=== PATIENT | female | born 1940 | race African-American/Black ===

== ENCOUNTER 2019-01-22 18:16 | Emergency (ER) | payer MEDICARE, MEDICAID ==
[~2019-01-22] VITALS: Ht 167.6 cm; Wt 90.0 kg
[~2019-01-22 18:16] MED LIST: CLARINEX; LIPITOR; METFORMIN; NASONEX; TRIAMETERENE/HCTZ; VERAPAMIL
[2019-01-22] MEDS ORDERED: FUROSEMIDE 40MG/4ML VIAL IV ONE (20:15)
[2019-01-22 20:33] LABS: BASOPHILS % 0.9 % (0.0-2.0); EOSINOPHILS % 4.8 % (0.0-5.0); HEMATOCRIT. 38.6 % (36.0-48.0); HEMOGLOBIN. 12.9 g/dL (12.0-16.0); LYMPHOCYTES % 37.7 % (20.0-50.0); MEAN CORPUSCULAR HEMOGLOBIN 30.1 pg (28.0-32.0); MEAN CORPUSCULAR VOLUME 90.4 fL (81.0-99.0); MEAN PLATELET VOLUME 9.5 fl (7.4-10.4); MONOCYTES % 9.3 % (2.0-8.0); NEUTROPHILS % 47.3 % (40.0-76.0); PLATELET 183 x1000/uL (130-400); RED BLOOD CELL COUNT 4.27 mill/uL (4.2-5.4); RED CELL DISTRIBUTION WIDTH 15.6 % (11.6-14.6)
[2019-01-22 20:36] LABS: CHLORIDE 108 mEq/L (98-107)
[2019-01-22 20:40] LABS: PROTHROMBIN TIME 10.1 sec (9.6-11.0)
[2019-01-22 23:14] VITALS: BP 144/58
== END 2019-01-22 23:41 | disposition home or self-care (01) ==
LOC: ER 18:16
DX: R60.0 Localized edema (principal); E11.9 Type 2 diabetes mellitus without complications; I10 Essential (primary) hypertension; E78.00 Pure hypercholesterolemia, unspecified; Z91.048 Other nonmedicinal substance allergy status; Z79.84 Long term (current) use of oral hypoglycemic drugs; Z79.899 Other long term (current) drug therapy; Z90.710 Acquired absence of both cervix and uterus
CPT/HCPCS: 36415; 71045; 80053; 83880; 84484; 85025; 85610; 93005; 96374; 99284; J1940

== ENCOUNTER 2021-10-08 10:40 | Emergency (ER) | payer MEDICARE, MEDICAID ==
[~2021-10-08] VITALS: Ht 167.6 cm; Wt 91.0 kg
[2021-10-08 12:07] LABS: CHLORIDE 110 mEq/L (98-107)
[2021-10-08 12:13] LABS: BASOPHILS % 0.4 % (0.0-2.0); EOSINOPHILS % 4.9 % (0.0-5.0); HEMATOCRIT. 37.5 % (36.0-48.0); HEMOGLOBIN. 12.6 g/dL (12.0-16.0); LYMPHOCYTES % 31.4 % (20.0-50.0); MEAN CORPUSCULAR HEMOGLOBIN 29.1 pg (28.0-32.0); MEAN PLATELET VOLUME 9.7 fl (7.4-10.4); MONOCYTES % 9.4 % (2.0-8.0); NEUTROPHILS % 53.9 % (40.0-76.0); PLATELET 232 x1000/uL (130-400); RED BLOOD CELL COUNT 4.32 mill/uL (4.2-5.4); RED CELL DISTRIBUTION WIDTH 15.2 % (11.6-14.6)
[2021-10-08 13:57] VITALS: BP 144/76
== END 2021-10-08 15:19 | disposition home or self-care (01) ==
LOC: ER 10:40
DX: R07.89 Other chest pain (principal); I10 Essential (primary) hypertension; E11.9 Type 2 diabetes mellitus without complications; E78.00 Pure hypercholesterolemia, unspecified; Z85.3 Personal history of malignant neoplasm of breast; Z98.890 Other specified postprocedural states
CPT/HCPCS: 36415; 71045; 80053; 83880; 84484; 85025; 93005; 99285

== ENCOUNTER 2022-05-19 08:48 | Emergency (ER) | payer MEDICARE, MEDICAID ==
[~2022-05-19] VITALS: Ht 167.6 cm; Wt 90.0 kg
[2022-05-19 08:51] VITALS: BP 156/82
== END 2022-05-19 10:31 | disposition left against medical advice (07) ==
LOC: ER 08:51
DX: Z53.21 Procedure and treatment not carried out due to patient leaving prior to being seen by health care provider (principal)
CPT/HCPCS: 93005

== ENCOUNTER 2022-09-03 05:39 | Day surgery (SDC) | payer MEDICARE, MEDICAID ==
[~2022-09-03] VITALS: Ht 167.6 cm; Wt 88.5 kg
[~2022-09-03 05:39] MED LIST changes: +ARIP10TA56 PO; +ASPI-1497 PO; +ATEN50TA PO; +BROM3DRO BOTHEYE; +CALC-38 PO; -CLARINEX; +CYCL30DR BOTHEYE; +FAMO40TA7 PO; +FLUT15.844 NS; +GABA-290 PO; +HYDR-4134 PO; +LINA145C PO; -LIPITOR; +METF-416 PO; -METFORMIN; +MONT10TA21 PO; -NASONEX; +SIMV10TA97 PO; -TRIAMETERENE/HCTZ; +VERA80TA7 PO; -VERAPAMIL
[2022-09-03] MEDS ORDERED: SODIUM CHLORIDE 0.9% 1,000 ML IV SCH (06:30)
[2022-09-03] MEDS ORDERED: SKIN ADHESIVE 0.7 GM EA TOP ONE (06:54)
[2022-09-03] MEDS ORDERED: BUPIVACAINE HCL/PF 0.5% (5MG/ML) 30ML ONE (06:54)
[2022-09-03] MEDS ORDERED: PROPOFOL 200MG/20ML VIAL IV ONE (07:22)
[2022-09-03] MEDS ORDERED: ONDANSETRON HCL 4MG/2ML INJ ONE (07:25)
[2022-09-03] MEDS ORDERED: LIDOCAINE HCL 1% 10 MG/ML 10ML VIAL ONE (07:25)
[2022-09-03] MEDS ORDERED: LIDOCAINE 2% 6ML GLYDO MM ONE (07:25)
[2022-09-03] MEDS ORDERED: MIDAZOLAM HCL 2 MG/2 ML VIAL ONE (07:26)
[2022-09-03] MEDS ORDERED: FENTANYL CITRATE/PF 50MCG/ML 2ML VIAL ONE (07:32)
[2022-09-03] MEDS ORDERED: FENTANYL CITRATE/PF 50MCG/ML 2ML VIAL IV PRN (07:32)
[2022-09-03] MEDS ORDERED: SUCCINYLCHOLINE CHLORIDE 200MG/10ML IV ONE (08:27)
== END 2022-09-03 11:00 | disposition home or self-care (01) ==
LOC: OR 05:39
PROVIDERS: ATTEND Surgery
DX: R22.2 Localized swelling, mass and lump, trunk (principal); D36.7 Benign neoplasm of other specified sites; I10 Essential (primary) hypertension; E11.9 Type 2 diabetes mellitus without complications; E78.00 Pure hypercholesterolemia, unspecified; M19.90 Unspecified osteoarthritis, unspecified site; Z79.82 Long term (current) use of aspirin; Z79.899 Other long term (current) drug therapy; Z98.890 Other specified postprocedural states; Z20.822 Contact with and (suspected) exposure to COVID-19; Z90.710 Acquired absence of both cervix and uterus
CPT/HCPCS: 21931; 82962; 87426; 88305; C9803; J0330; J2250; J2405; J2704; J3010; J3490; J7030

== ENCOUNTER 2024-10-26 12:38 | Emergency (ER) | payer OTHER, MEDICAID ==
[~2024-10-26] VITALS: Ht 157.5 cm; Wt 86.0 kg
[~2024-10-26 12:38] MED LIST changes: -ARIP10TA56 PO; +ARIP10TA86 PO; -HYDR-4134 PO; +HYDR25TA78 PO; +MONT-46 PO; -MONT10TA21 PO
[2024-10-26 12:40] VITALS: BP 165/72; PULSE 78; RESP 18; TEMP 36.8; O2SAT 99
[2024-10-26 13:42] LABS: BASOPHILS % 0.5 % (0.0-2.0); EOSINOPHILS % 4.1 % (0.0-5.0); HEMATOCRIT. 47.4 % (36.0-48.0); HEMOGLOBIN. 15.3 g/dL (12.0-16.0); LYMPHOCYTES % 27.9 % (20.0-50.0); MEAN CORPUSCULAR HEMOGLOBIN 28.9 pg (28.0-32.0); MEAN CORPUSCULAR HGB CONC 32.3 g/dL (31.0-37.0); MEAN CORPUSCULAR VOLUME 89.4 fL (81.0-99.0); MONOCYTES % 8.6 % (2.0-8.0); NEUTROPHILS % 58.9 % (40.0-76.0); RED CELL DISTRIBUTION WIDTH 15.7 % (11.6-14.6); WHITE BLOOD COUNT 8.1 x1000/uL (4.5-11.0)
[2024-10-26 13:43] LABS: CHLORIDE 102 mEq/L (98-107); POTASSIUM 4.2 mEq/L (3.5-5.1); SODIUM 142 mEq/L (136-145)
[2024-10-26 13:44] LABS: CARBON DIOXIDE 34 mEq/L (21-32)
[2024-10-26 13:45] LABS: CALCIUM 9.5 mg/dL (8.7-10.4)
[2024-10-26 13:49] LABS: CREATININE 1.1 mg/dL (0.6-1.0); GLUCOSE 105 mg/dL (70-105); UREA NITROGEN BLOOD 17 mg/dL (9-23)
[2024-10-26 13:52] LABS: TROPONIN I HIGH SENSITIVITY 7 ng/L (3.0-34)
[2024-10-26 14:01] LABS: DIFFERENTIAL COMMENT 1
[2024-10-26 14:37] LABS: PLATELET 247 x1000/uL (130-400)
[2024-10-26] MEDS: MAGNESIUM/ALUMINUM HYDROXIDE/SIMETHICONE 30ML UDC PO ONE (14:46)
[2024-10-26] MEDS: VISCOUS LIDOCAINE 2% 15 ML UDC PO ONE (14:46)
== END 2024-10-26 15:54 | disposition home or self-care (01) ==
LOC: ER 12:38
DX: R07.89 Other chest pain (principal); E78.00 Pure hypercholesterolemia, unspecified; I10 Essential (primary) hypertension; J44.9 Chronic obstructive pulmonary disease, unspecified; E11.9 Type 2 diabetes mellitus without complications; Z79.84 Long term (current) use of oral hypoglycemic drugs; Z79.82 Long term (current) use of aspirin; Z79.899 Other long term (current) drug therapy; Z79.621 Long term (current) use of calcineurin inhibitor
CPT/HCPCS: 36415; 71045; 80048; 84484; 85025; 93005; 99285